=== PATIENT | female | born 1950 | race American Indian/Alaskan Native ===

== ENCOUNTER 2017-03-18 06:55 | Day surgery (SDC) | payer MEDICARE ==
[2017-03-18] MEDS ORDERED: NACL 0.9% 500 ML 500 ML IV SCH (08:00)
[2017-03-18 08:10] LABS: Basophils % (Auto) 0.2 % (0.0-1.8); Eosinophils % (Auto) 2.4 % (0.0-4.3); Hematocrit 33.3 % (30.3-42.9); Hemoglobin 10.9 gm/dl (10.1-14.3); Mean Corpuscular HGB Conc 33 % (30-34); Mean Corpuscular Hemoglobin 27 pg (28-32); Mean Corpuscular Volume 82 fl (79-97); Platelet Count 253 K/mm3 (140-440); Red Blood Count 4.05 M/mm3 (3.65-5.03); Red Cell Distribution Width 14.7 % (13.2-15.2); White Blood Count 7.1 K/mm3 (4.5-11.0)
[2017-03-18 08:20] LABS: INR 1.05 (0.87-1.13)
[2017-03-18 08:25] LABS: Anion Gap 17 mmol/L; BUN/Creatinine Ratio 21.66; Blood Urea Nitrogen 13 mg/dL (7-17); Calcium 9.3 mg/dL (8.4-10.2); Carbon Dioxide 29 mmol/L (22-30); Chloride 99.4 mmol/L (98-107); Glucose 123 mg/dL (65-100); Potassium 3.5 mmol/L (3.6-5.0); Sodium 142 mmol/L (137-145)
[2017-03-18] MEDS ORDERED: XYLOCAINE 2% INFILTRATI ONE (09:13)
[2017-03-18] MEDS ORDERED: HEPARIN/NS 5000 UNIT/500ML(CATH LAB) 1,000 ML IR ONE (09:13)
[2017-03-18] MEDS ORDERED: VERSED ONE (09:27)
[2017-03-18] MEDS ORDERED: SUBLIMAZE ONE (09:27)
[2017-03-18] MEDS ORDERED: HEPARIN 10,000 UNITS/10 ML ONE (09:29)
[2017-03-18] MEDS ORDERED: CALAN ONE (09:29)
[2017-03-18] MEDS: NITROGLYCERIN SYRINGE 0 ML ONE ×2 (09:44→09:45)
--- NOTE | 2017-03-18 10:18 | Short Stay Summary ---
Short Stay Documentation Date of service: 03/18/17 - History H&P: obtained from office - Allergies and Medications Current Medications: Allergies aspirin Allergy (Verified 03/18/17 07:48) Rash NAUSEA Penicillins Allergy (Verified 12/28/14 16:49) Hives Sulfa (Sulfonamide Antibiotics) Allergy (Verified 06/07/15 20:44) Unknown Home Medications Medication Instructions Recorded Confirmed Last Taken Type Atenolol/Chlorthalidone [Tenoretic 1 tab PO DAILY 12/28/14 03/18/17 03/18/17 08: 00 History 50-25 mg] Levothyroxine [Synthroid] 200 mcg PO QAM 12/28/14 03/18/17 03/18/17 08:00 History Pantoprazole Sodium [Protonix] 40 mg PO DAILY 12/28/14 03/18/17 03/18/17 08:00 History SUMAtriptan SUCCINATE [SUMAtriptan 25 mg PO DAILY PRN 12/28/14 03/18/17 History Succinate] 25 MG SUMAtriptan SUCCINATE [Sumatriptan 6 mg SQ DAILY PRN #1 box 12/28/14 03/18/17 Rx Succinate] 6 MG Sertraline HCl 100 mg PO QDAY 12/28/14 03/18/17 03/18/17 08:00 History levETIRAcetam [Keppra] 500 mg PO BID 12/28/14 03/18/17 03/18/17 08:00 History Clopidogrel [Plavix] 75 mg PO DAILY 06/07/15 03/18/17 03/18/17 08:00 History Docusate Sodium [Dok] 100 mg PO BID 06/07/15 03/18/17 03/17/17 History Simvastatin [Zocor TAB] 10 mg PO DAILY 06/07/15 03/18/17 03/17/17 History Active Medications Sodium Chloride (Nacl 0.9% 500 Ml) 500 mls @ 50 mls/hr IV DIRECT ASUNCION Stop: 03/18/17 17:59 Last Admin: 03/18/17 08:45 Dose: 50 mls/hr - Physical exam General appearance: no acute distress HEENT: Atraumatic Lungs: Clear to auscultation Breasts: deferred Heart: Regular rate Gastrointestinal: normal Female Genitourinary: deferred Rectal Exam: deferred Extremities: no ischemia Neurological: Normal gait - Brief post op/procedure progress note Date of procedure: 03/18/17 Pre-op diagnosis: Abnormal stress test Post-op diagnosis: same Procedure: LHC, LV gram Anesthesia: MAC Findings: See report Surgeon: ANIA XAVIER Estimated blood loss: none Pathology: none Condition: stable - Hospital course Hospital course: Uneventful - Disposition Condition at discharge: Good Disposition: DC-01 TO HOME OR SELFCARE Short Stay Discharge Plan Activity: advance as tolerated Weight Bearing Status: Partial Weight Bearing Diet: low cholesterol, low salt Follow up with: PEGGY STUBBS DO [Primary Care Provider] - 7 Days
--- NOTE | 2017-03-18 10:21 | Prelim Cardiac Cath Report ---
Preliminary Cath Report - Hemodynamic Findings Aorta(AO): Normal ascending aorta Left Ventricular(LV): Normal LVEF End Diastolic Pressure(EDP): LVEDP 22 mm Hg - Other Findings Estimated blood loss: minimal Dominance: left Estimated Ejection Fraction: 60 LV Contractility: Normal Coronary Anatomy: 50% ostial LAD 30% mid LAD 30% mid Cx 70-80% proximal RCA, small non-dominant vessel Post Diagnosis: Non-obstructive CAD in a left domnant circulation 70-80% proximal RCA, small non-dominant vessel Recommendations: medical therapy
[2017-03-18 12:29] VITALS: BP 125/56
--- NOTE | 2017-04-08 12:25 | Cardiac Catherization Report ---
LEFT HEART CATHETERIZATION INDICATION FOR PROCEDURE: Chest pain, abnormal myocardial perfusion scan. PROCEDURES PERFORMED: 1. Selective left and right coronary angiography. 2. Left ventriculography. DESCRIPTION OF PROCEDURE: After obtaining written consent, the patient was draped using sterile technique. A 2% lidocaine was injected into the right wrist. A 5-[place] vascular sheath was inserted into the right radial artery. A 5-[place] JL3.5 catheter was used to selectively engage the left coronary artery. A 5-[place] JR4 catheter was used to selectively engage the right coronary artery. A 5-[place] JR4 catheter was used to hand inject the left ventriculogram. No complications occurred during the procedure. Hemostasis was achieved at the end of the procedure using manual pressure. SPECIMEN REMOVED: None. ESTIMATED BLOOD LOSS: Minimal. FINDINGS: HEMODYNAMICS: Aortic pressure 128/73, LV systolic pressure was 124 mmHg and LV end diastolic pressure was 22 mmHg. No significant gradient was noted across the left ventricular outflow tract. CARDIAC STRUCTURES: The left ventricle is normal in size and systolic function with the left ventricular ejection fraction estimated at 60% and normal wall motion. CORONARY ANATOMY: 1. This is a left dominant circulation. 2. The left main is angiographically normal. 3. There is evidence of 50% tubular stenosis of the ostium in the proximal segment of the LAD. This is followed by 30% tubular stenosis of the mid LAD. 4. There is evidence of a tubular 30% stenosis of the mid circumflex artery. 5. There is evidence of a 70-80% proximal right coronary artery lesion; however, the vessel is small and nondominant. IMPRESSION: 1. Nonobstructive coronary artery disease in a left dominant circulation. 2. A 70-80% proximal right coronary artery, small nondominant vessel. 3. Normal left ventricular size and systolic function. 4. LVEDP measured at 22 mmHg. RECOMMENDATIONS: Medical therapy. JOB# [id number] URBANO/KARIS
== END 2017-03-18 12:35 | disposition home or self-care (01) ==
LOC: OPU 06:55
PROVIDERS: ATTEND Internal Medicine
DX: I25.119 Atherosclerotic heart disease of native coronary artery with unspecified angina pectoris (principal); F32.9 Major depressive disorder, single episode, unspecified; M10.9 Gout, unspecified; F41.9 Anxiety disorder, unspecified; M15.9 Polyosteoarthritis, unspecified; K21.9 Gastro-esophageal reflux disease without esophagitis; E78.5 Hyperlipidemia, unspecified; I10 Essential (primary) hypertension; I25.2 Old myocardial infarction; Z90.710 Acquired absence of both cervix and uterus; Z98.890 Other specified postprocedural states; Z82.49 Family history of ischemic heart disease and other diseases of the circulatory system; Z82.3 Family history of stroke; Z79.01 Long term (current) use of anticoagulants; Z79.899 Other long term (current) drug therapy; Z86.73 Personal history of transient ischemic attack (TIA), and cerebral infarction without residual deficits; Z88.8 Allergy status to other drugs, medicaments and biological substances; Z88.0 Allergy status to penicillin; Z88.2 Allergy status to sulfonamides
CPT/HCPCS: 36415; 80048; 85025; 85610; 85730; 93005; 93010; 93458; C1769; C1894; J1644; J2250; J3010; J7040; Q9967